=== PATIENT | male | born 2000 | race Caucasian/White ===

== ENCOUNTER 2022-06-26 05:47 | Emergency (ER) | payer SELFPAY ==
[2022-06-26 06:00] VITALS: BP 119/68; PULSE 69; RESP 16; TEMP 98.2; BMI 27.3
[2022-06-26] MEDS ORDERED: DIPHTH,PERTUSS(ACELL),TET 0.5 ML DISP.SYRIN IM ONE ×2 (06:17→06:20)
== END 2022-06-26 06:26 | disposition home or self-care (01) ==
LOC: FER 05:47
PROC: 3E0234Z Introduction of Serum, Toxoid and Vaccine into Muscle, Percutaneous Approach (ICD-10-PCS; principal; 2022-06-26)
DX: S01.81XA Laceration without foreign body of other part of head, initial encounter (principal); W01.198A Fall on same level from slipping, tripping and stumbling with subsequent striking against other object, initial encounter
CPT/HCPCS: 90715; 99284-25

== ENCOUNTER 2023-04-30 22:36 | Emergency (ER) | payer OTHER ==
[2023-04-30 22:56] VITALS: BP 138/92; PULSE 82; RESP 18; TEMP 98.9; BMI 27.3
[2023-05-01] MEDS ORDERED: KETOROLAC TROMETHAMINE 30 MG/1 ML VIAL IM ONE (00:19)
[2023-05-01] MEDS ORDERED: KETOROLAC TROMETHAMINE 30 MG/1 ML VIAL ONE (00:22)
== END 2023-05-01 00:57 | disposition home or self-care (01) ==
LOC: JER 22:36
PROC: 3E0233Z Introduction of Anti-inflammatory into Muscle, Percutaneous Approach (ICD-10-PCS; principal; 2023-05-01)
DX: R42 Dizziness and giddiness (principal); T50.905A Adverse effect of unspecified drugs, medicaments and biological substances, initial encounter; R53.1 Weakness; H53.9 Unspecified visual disturbance
CPT/HCPCS: 76512; 99284-25

== ENCOUNTER 2023-05-14 19:41 | Emergency (ER) | payer OTHER ==
[2023-05-14 19:46] VITALS: BP 124/80; PULSE 64; RESP 20; TEMP 97.6; BMI 25.7
[2023-05-14] MEDS ORDERED: METHOCARBAMOL 500 MG TABLET PO ONE (20:22)
[2023-05-14] MEDS ORDERED: ACETAMINOPHEN 500 MG TABLET (FP) PO ONE (20:22)
[2023-05-14] MEDS ORDERED: LIDOCAINE 4% PATCH TP ONE ×2 (20:24→20:51)
[2023-05-14] MEDS ORDERED: METHOCARBAMOL 500 MG TABLET ONE (20:52)
[2023-05-14] MEDS ORDERED: LIDOCAINE PATCH REMOVAL MC SCH (22:00)
== END 2023-05-15 00:52 | disposition home or self-care (01) ==
LOC: JER 19:41
DX: M54.50 Low back pain, unspecified (principal); G89.29 Other chronic pain; S39.012A Strain of muscle, fascia and tendon of lower back, initial encounter; X50.1XXA Overexertion from prolonged static or awkward postures, initial encounter
CPT/HCPCS: 72070-TC-FY; 72131-TC; 99284-25